=== PATIENT | female | born 2005 | race Two or more races ===

== ENCOUNTER 2025-05-19 19:14 | Emergency (ER) | payer MEDICAID, SELFPAY ==
[2025-05-19 19:15] VITALS: BMI 20.6
[2025-05-19 19:26] VITALS: BP 104/70; PULSE 80; RESP 18; TEMP 37.2; O2SAT 96
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
[2025-05-19] MEDS: IBUPROFEN TAB 600 MG TABLET PO (20:35)
== END 2025-05-19 21:39 | disposition home or self-care (01) ==
PROVIDERS: Emergency Provider Emergency Medicine; PCP Family Medicine
DX: S93.601A Unspecified sprain of right foot, initial encounter (principal); S80.212A Abrasion, left knee, initial encounter; S80.211A Abrasion, right knee, initial encounter; V86.55XA Driver of 3- or 4- wheeled all-terrain vehicle (ATV) injured in nontraffic accident, initial encounter
CPT/HCPCS: 29515; 73630; 80053; 81001; 85025; 87502; 87651; 87811; 99283; A9270